=== PATIENT | female | born 1985 | race Caucasian/White ===

== ENCOUNTER 2017-10-04 05:29 | Emergency (ER) | payer OTHER ==
[2017-10-04 10:48] LABS: HEPATITIS B SURFACE ANTIBODY GREATER THAN 1000 mIU/mL
[2017-10-04 11:03] LABS: HEPATITIS C AB IgG NONREACTIVE (NONREACTIVE)
[2017-10-11] MEDS ORDERED: ceFAZolin 2 GM in NS 100 ML IV (13:15)
== END 2017-10-04 06:28 | disposition home or self-care (01) ==
LOC: NEPD 05:29
DX: S61.230A Puncture wound without foreign body of right index finger without damage to nail, initial encounter (principal); W46.1XXA Contact with contaminated hypodermic needle, initial encounter; Y93.F9 Activity, other caregiving; Y99.0 Civilian activity done for income or pay
CPT/HCPCS: 86317; 86703; 86803; 99283